=== PATIENT | female | born 1960 | race Caucasian/White ===

== ENCOUNTER 2023-11-07 12:10 | Day surgery (SDC) | payer OTHER ==
[~2023-11-07] VITALS: Ht 157.5 cm; Wt 46.3 kg
[2023-11-07] MEDS ORDERED: BENZOCAINE 20% 0.5mL UD SPRAY MM ONE (13:40)
[2023-11-07] MEDS ORDERED: MIDAZOLAM HCL 5 MG/5 ML VIAL ONE (13:41)
[2023-11-07] MEDS ORDERED: MEPERIDINE 100 MG INJ. 100 MG/ML VIAL ONE (13:41)
[2023-11-07] MEDS ORDERED: fentaNYL CITRATE/PF 100 MCG/2 ML AMP ONE (13:52)
[2023-11-07 18:39] VITALS: TEMP 97.3; O2SAT 98
[2023-11-07 20:25] VITALS: BP_SYST 85; PULSE 68; RESP 11
== END 2023-11-07 15:34 | disposition home or self-care (01) ==
LOC: SDS 12:10 → SMU 12:11 → SDS 15:34
PROVIDERS: ATTEND Student in an Organized Health Care Education/Training Program
DX: R19.4 Change in bowel habit (principal); D12.0 Benign neoplasm of cecum; K29.50 Unspecified chronic gastritis without bleeding; Z80.0 Family history of malignant neoplasm of digestive organs; R10.13 Epigastric pain; K64.8 Other hemorrhoids; E78.5 Hyperlipidemia, unspecified; Z79.899 Other long term (current) drug therapy
CPT/HCPCS: 45385; 43239; 99152; 88305; 88312; 88313; 99153; G0378; J2250; J3010; J2175